=== PATIENT | female | born 1980 | race Hispanic/Latino ===

== ENCOUNTER 2018-12-29 09:13 | Emergency (ER) | payer OTHER ==
[2018-12-29 10:06] LABS: Bilirubin Negative (Negative); Blood, Urine Moderate (Negative); Clarity Clear (Clear); Glucose, Urine (Dipstick) Negative (Negative); Leukocyte Negative (Negative); Nitrite Negative (Negative); Protein, Urine (Dipstick) Negative (Neg-Trace); Specific Gravity, Urine 1.015 (1.005-1.030); Urobilinogen 0.2 mg/dL (0.2-1.0)
[2018-12-29 10:06] LABS: #Lymphocytes 1.9 thou/uL (1.20-3.40); #Monocytes 0.4 thou/uL (0.11-0.59); #Neutrophils 5.1 thou/uL (1.40-6.50); %Basophils 0.6 % (0.0-1.0); %Eosinophils 0.1 % (0.0-10.0); %Lymphocytes 25.7 % (21.0-51.0); %Monocytes 5.2 % (0.0-10.0); %Neutrophils 68.4 % (42.0-75.0); Hemoglobin 13.8 g/dL (12.0-16.0); Mean Corpuscular Volume 85.1 fL (78.0-98.0); Platelet Count 215 thou/uL (130-400); RBC Distribution Width 12.5 % (11.5-14.5); Red Blood Cell (RBC) Count 4.78 mill/uL (4.20-5.40); White Blood Cell (WBC) Count 7.4 thou/uL (4.8-10.8)
[2018-12-29 10:14] LABS: Bacteria/HPF 1+ HPF (None Seen); WBC/HPF None Seen HPF (0-3)
--- NOTE | 2018-12-29 11:26 | ULT ---
PELVIC ULTRASOUND: HISTORY: female with vaginal bleeding. Initially, this was dark spotting, but it became bright red t anita. TECHNIQUE: Multiplanar, chavez scale, and color Doppler images were obtained in a transabdominal and transvaginal pelvic ultrasound. Spectral analysis of the Doppler waveforms of the ovaries was performed. FINDINGS: There is a single live intrauterine with a heartbeat of 147 b.p.m. A yolk sac and po le are seen. [place]-rump length of the pole is 1.43 cm which estimates gestational age at 7 wee ks 5 days. A small hypodense region adjacent to the gestational sac likely represents a small area of subchorion ic hemorrhage. Both ovaries are normal in size and appearance and demonstrate normal internal flow. A corpus luteum cyst is seen in the left ovary. IMPRESSION: 1. Small subchorionic hemorrhage. 2. Single live intrauterine with estimated age of 7 weeks 5 days. POS: [facility]
== END 2018-12-29 11:15 | disposition home or self-care (01) ==
LOC: SCSER 09:13
DX: O20.8 Other hemorrhage in early pregnancy (principal); O20.0 Threatened abortion; O99.281 Endocrine, nutritional and metabolic diseases complicating pregnancy, first trimester; E03.9 Hypothyroidism, unspecified; E28.2 Polycystic ovarian syndrome; E11.9 Type 2 diabetes mellitus without complications; Z79.4 Long term (current) use of insulin; Z79.899 Other long term (current) drug therapy; Z3A.01 Less than 8 weeks gestation of pregnancy
CPT/HCPCS: 76856; 81003; 81015; 84702; 85025; 86900; 86901

== ENCOUNTER 2019-04-22 10:25 | Day surgery (SDC) | payer OTHER ==
[2019-04-22 11:25] VITALS: BMI 32.3
--- NOTE | 2019-04-22 13:31 | PRG ---
DATE OF SERVICE: 04/22/2019 TIME OF SERVICE: 10 o'clock. PRESENTING COMPLAINT: Decreased movement for one day. HISTORY OF PRESENT ILLNESS: Ms. Ordonez is a 38-year-old 5, para 3, AB 1, previous C-sections at 24 weeks' gestation, sees Dr. Evelyn Wallace. She is a diabetic, on both insulin and metformin. She was doing a lot of house cleaning at all over the weekend and noticed decreased movement. She states she did jumping jacks at home, but did not have any improvement. She denies rupture of membranes. She denies vaginal bleeding. OB HISTORY: x2. History of delivery in one at 27 weeks. Other pregnancies are gone term with 17-hydroxyprogesterone. PAST MEDICAL HISTORY: Hypothyroidism and diabetes. PAST SURGICAL HISTORY: delivery. ALLERGIES: NONE. MEDICATIONS: 1. Levemir. 2. Metformin. 3. Sadaf. 4. Thyroid 90 mg. SOCIAL HISTORY: Denies tobacco, alcohol, or IV drug use. FAMILY HISTORY: Noncontributory. REVIEW OF SYSTEMS: Noncontributory. PHYSICAL EXAMINATION: GENERAL: female. VITAL SIGNS: Blood pressure 118/80, pulse 78, respirations 18, weight 178 pounds. HEENT: Within normal limits. LUNGS: Clear to auscultation bilaterally. HEART: Regular rate and rhythm. ABDOMEN: Soft and nontender. Fundal height of 25 cm. FHTs 140s. EXTREMITIES: Without clubbing, cyanosis, or edema. PELVIC: Deferred. heart rate tracing, I was unable to perform NST because of early gestational age, however, continuous tracing was achieved for greater than 5 minutes, which was category I with accelerations and audible movement. IMPRESSION: Diabetic, 24 weeks with decreased movement. No evidence of compromise, likely due to positioning in early gestational age with insulin-dependent diabetes. PLAN: Discharge home. Keep scheduled followup with Dr. Wallace and Maternal Medicine. Job ID: [id number]
== END 2019-04-22 11:45 | disposition home or self-care (01) ==
LOC: L&D/OP 10:25
PROVIDERS: ATTEND Obstetrics & Gynecology
DX: O36.8120 Decreased fetal movements, second trimester, not applicable or unspecified (principal); O99.282 Endocrine, nutritional and metabolic diseases complicating pregnancy, second trimester; E03.9 Hypothyroidism, unspecified; O24.912 Unspecified diabetes mellitus in pregnancy, second trimester; Z79.4 Long term (current) use of insulin; Z3A.24 24 weeks gestation of pregnancy; Z79.899 Other long term (current) drug therapy
CPT/HCPCS: 99282

== ENCOUNTER 2019-06-14 02:50 | Day surgery (SDC) | payer OTHER ==
[2019-06-14 03:36] VITALS: BP 127/75; TEMP 98.7; BMI 33.3
[2019-06-14] MEDS ORDERED: hydrALAZINE 20 MG/ML VIAL SLOW IVP PRN (03:59)
--- NOTE | 2019-06-14 07:00 | PRG ---
DATE OF SERVICE: 06/14/2019 PRIMARY OB: Evelyn Wallace DO CHIEF COMPLAINT: Decreased movement. HISTORY OF PRESENT ILLNESS: The patient is a 38-year-old, G5, P3 female with an intrauterine at 31 weeks and 4 days, who presents with lower back pain and decreased movement. The patient attributes her back pain to her work schedule and sitting all day. She reports that since early in the afternoon, she had not felt her baby move and was concerned and came in. The patient denies any uterine contractions, leakage of fluid, or vaginal bleeding. Past medical history is significant for diabetes and thyroid disease. The patient denies any fever, fall, headache, chest pain, shortness of breath, nausea, vomiting, diarrhea, constipation, hip problems, knee problems, muscle weakness, vaginal bleeding, leakage of fluid, or urinary urgency or frequency. PAST MEDICAL HISTORY: Thyroid disorder, type 2 diabetes, migraines. PAST SURGICAL HISTORY: She has had a , tummy tuck, breast lift. ALLERGIES: NO KNOWN DRUG ALLERGIES. SOCIAL HISTORY: Denies drug, alcohol, or tobacco use. MEDICATIONS: 1. Levemir. 2. Metformin. 3. [place]. 4. Thyroid medication. OB HISTORY: She has had history of a 27-week delivery and has had 2 prior C-sections. OB LABS: Unavailable at the time of dictation. REVIEW OF SYSTEMS: Per HPI. PHYSICAL EXAMINATION: VITAL SIGNS: Blood pressure 127/75, heart rate in the 90s, saturating 99% to 100% on room air, temperature 98.7, respiratory rate is 16. GENERAL: She appears to be in no acute distress. She is alert, oriented, cooperative, and pleasant to interact with. HEAD: Normocephalic, atraumatic. LUNGS: Clear to auscultation bilaterally. HEART: Regular rate and rhythm. ABDOMEN: Soft and gravid. EXTREMITIES: Nontender. Nonedematous. She does have some paravertebral muscular pains in her lower back to palpation. Extremities are nontender with minimal edema. Cervix is closed on cervical exam per nursing staff. heart tracing shows a baseline in the 140s with moderate long-term variability, positive 15 x 15 accelerations, no decelerations. Tocometer not showing any contractions. ASSESSMENT AND PLAN: The patient is a 38-year-old female with an intrauterine at 31 weeks, complicated by type 2 diabetes and thyroid dysfunction, controlled, here for decreased movement. The fetus had a reactive NST and category 1 tracing. The patient has been given reassurance. Pains are consistent with musculoskeletal pains of . She has no evidence of labor and the pains can be reproduced with palpation. We suggested stretching may be of assistance, Tylenol and heat to the area. The patient is being discharged home. She has instructions to follow up with her primary OB as scheduled. Job ID: [id number]
== END 2019-06-14 04:27 | disposition home or self-care (01) ==
LOC: L&D/OP 02:50
PROVIDERS: ATTEND Obstetrics & Gynecology
DX: O36.8130 Decreased fetal movements, third trimester, not applicable or unspecified (principal); O26.893 Other specified pregnancy related conditions, third trimester; M54.5 Low back pain; O99.283 Endocrine, nutritional and metabolic diseases complicating pregnancy, third trimester; E07.9 Disorder of thyroid, unspecified; O99.353 Diseases of the nervous system complicating pregnancy, third trimester; G43.909 Migraine, unspecified, not intractable, without status migrainosus; O24.913 Unspecified diabetes mellitus in pregnancy, third trimester; Z3A.31 31 weeks gestation of pregnancy; Z79.4 Long term (current) use of insulin; Z79.82 Long term (current) use of aspirin; Z79.899 Other long term (current) drug therapy
CPT/HCPCS: 59025; 99282

== ENCOUNTER 2019-07-24 09:30 | Inpatient (IN) | payer OTHER ==
[2019-07-24] MEDS ORDERED: Ondansetron PF 4 MG/2 ML Vial IVP PRN (09:59)
[2019-07-24] MEDS ORDERED: Promethazine HCl 25 MG/ML VIAL IM PRN ×2 (09:59→11:32)
[2019-07-24] MEDS ORDERED: hydrALAZINE 20 MG/ML VIAL SLOW IVP PRN ×2 (09:59→14:01)
[2019-07-24] MEDS ORDERED: Acetaminophen 500 MG TAB PO PRN (09:59)
[2019-07-24] MEDS ORDERED: Butorphanol Tartrate 1 MG/ML VIAL SLOW IVP PRN (09:59)
[2019-07-24] MEDS ORDERED: Bicitra 30 ML UDCUP PO SCH (10:00)
[2019-07-24] MEDS ORDERED: CEFAZOLIN 2 GM in Premix Bag 1 BAG IVPB SCH (10:00)
[2019-07-24] MEDS: Lactated Ringer's 1,000 ML IV SCH ×2 (10:20→17:55)
[2019-07-24 10:26] VITALS: BMI 34.5
--- NOTE | 2019-07-24 10:31 | PDOC.LDHP ---
Labor and Delivery H&P Chief complaint: other (Repeat CS) HPI: 38 yo @ 37w2d by LMP c/w 9 week CRL who presents from clinic for RCD due to h/o previous CS x2, oligohydramions. RFs: CS x2, H/O PTD @ 27 week (s/p Sadaf), AMA, BDM on insulin, hypothyroidism. DM mgmt: Levemir 48 units BID; Humalog 66 with meals, Metformin 1000 mg BID. Echo: mild tricuspid regurgitation and biventricular hypertrophy that are stable with normal EF (recommended infant echo 4 weeks after ) Current gestational age (weeks): 37 Due date: 08/12/19 Dating criteria: last menstrual period Grav: 5 Para: 3 OB History Details: 1 VD, 2 CS Current complications: oligohydramnios ( RFs: CS x2, H/O PTD @ 27 week (on Sadaf), AMA, BDM on insulin), other Current medications: pre- vitamins, other (Levemir, Humalog, Metformin, Synthroid) Previous surgical history: low tranverse CS (x2), other (abdominoplasty, liposuction) Allergies/Adverse Reactions: Allergies Allergy/AdvReac Type Severity Reaction Status Date / Time No Known Allergies Allergy Verified 06/14/19 03:24 Social history: none - Physical Exam Vital signs reviewed and normal: yes General: NAD Heart: RRR Lungs: nonlabored breathing Abdomen: gravid Extremeties: no edema FHT: category 1 [place] contractions every: no ctx - OB Labs Blood type: O RH: positive Antibody Screen: negative HIV: negative RPR: negative HEPSAg: negative GBS: positive Urine drug screen: negative Rubella: immune - Assessment 37w2d IUP CS x2 Oligohydramnios BDM Hypothyroidism Echo: mild tricuspid regurgitation and biventricular hypertrophy that are stable with normal EF (recommended infant echo 4 weeks after ) - Plan Plan: to OR for section, informed consent obtained, anesthesia consult for pain management
[2019-07-24 10:38] LABS: Hemoglobin 12.8 g/dL (12.0-16.0); Mean Corpuscular HGB CONC 34.9 g/dL (32.0-36.0); Mean Corpuscular Hemoglobin 29.5 pg (27.0-31.0); Mean Corpuscular Volume 84.7 fL (78.0-98.0); Mean Platelet Volume 9.5 fL (7.4-10.4); Platelet Count 205 thou/uL (130-400); RBC Distribution Width 15.2 % (11.5-14.5); Red Blood Cell (RBC) Count 4.34 mill/uL (4.20-5.40); White Blood Cell (WBC) Count 8.5 thou/uL (4.8-10.8)
[2019-07-24] MEDS ORDERED: Ondansetron PF 4 MG/2 ML Vial ONE ×3 (10:50→12:28)
[2019-07-24] MEDS ORDERED: Oxytocin 10 UNITS/ML VIAL ONE ×2 (10:50→11:29)
[2019-07-24] MEDS ORDERED: MORPHINE 5 MG/10 ML PF VIAL ONE (10:50)
[2019-07-24] MEDS ORDERED: ePHEDrine/0.9% NaCl/PF SYRINGE 50 mg/10 ml ONE (10:50)
[2019-07-24] MEDS ORDERED: ePHEDrine 50 MG/ML VIAL ONE (10:53)
[2019-07-24 11:17] LABS: HBSAg Index 0.19 S/CO (0-0.99); HIV (1/2) Antibody/Antigen Non-Reactive (NonReactive); HIV 1/2 INDEX 0.12 S/CO (<1.00); Hep B Surf Ag Non-Reactive S/CO (NonReactive)
[2019-07-24 11:19] LABS: Syphilis Antibody Nonreactive (Nonreactive); Syphilis Antibody Index 0.06 S/CO (<1.00 Non-Reactive)
[2019-07-24] MEDS ORDERED: Ondansetron HCl/PF 4 MG/2 ML Vial IVP PRN (11:32)
[2019-07-24] MEDS ORDERED: Naloxone HCl 0.4 mg/ml Vial IV PRN (11:32)
[2019-07-24] MEDS ORDERED: diphenhydrAMINE 50 MG/ML VIAL IVP PRN (11:32)
[2019-07-24] MEDS ORDERED: Promethazine HCl 25 MG SUPP PR PRN (11:32)
[2019-07-24] MEDS ORDERED: Naloxone HCl 0.4 mg/ml Vial IVP PRN ×2 (11:32)
[2019-07-24] MEDS ORDERED: HYDROmorphone 2 MG/ML VIAL SLOW IVP PRN (11:32)
[2019-07-24] MEDS ORDERED: Meperidine HCl/PF 25 MG/ML VIAL SLOW IVP PRN (11:32)
[2019-07-24] MEDS ORDERED: Ketorolac Tromethamine 30 MG/ML VIAL IVP PRN (11:32)
[2019-07-24] MEDS ORDERED: L&D-Morphine 4 MG/ML VIAL SLOW IVP PRN (11:32)
[2019-07-24] MEDS ORDERED: Communication Order-Pharmacy FS SCH (11:45)
[2019-07-24] MEDS ORDERED: Ketorolac Tromethamine 30 MG/ML VIAL IVP SCH (11:45)
--- NOTE | 2019-07-24 12:25 | PDOC.OPDEL ---
OB Operative/Delivery Note Delivery Dr/Surgeon: Evelyn Wallace DO Pre-Delivery Diagnosis: medically indicated induction Procedure/Post Delivery Dx: repeat low transverse CS Weeks gestation: 37 Anesthesia: spinal - Findings A Sex: female - 1 min: 8 - 5 min: 9 - Additional Findings/Plan Placenta delivered: spontaneous findings: low transverse hysterotomy without extension, normal uterus, normal tubes, normal ovaries Estimated blood loss: QBL 596 cc Compilations/Other Findings: Scant clear fluid in cephalic presentation Normal appearing placenta Post delivery plan: routine recovery (Dictation # [id number])
[2019-07-24] MEDS: Ondansetron PF 4 MG/2 ML Vial IVP PRN ×2 (12:32→17:48)
[2019-07-24] MEDS ORDERED: Acetaminophen 325 MG TAB PO PRN (14:01)
[2019-07-24] MEDS ORDERED: Lanolin Ointment 7 GM TUBE TOP PRN (14:01)
[2019-07-24] MEDS ORDERED: Methylergonovine 0.2 MG/ML VIAL IM PRN (14:01)
[2019-07-24] MEDS ORDERED: NS / Oxytocin 40 units/1000ml 1,000 ML IV SCH (14:01)
[2019-07-24] MEDS ORDERED: Adacel (T-DAP) 0.5 ML SYRINGE IM ONE (14:01)
[2019-07-24] MEDS ORDERED: diphenhydrAMINE 25 MG CAP PO PRN (14:01)
[2019-07-24] MEDS ORDERED: Bisacodyl 10 MG SUPP PR PRN (14:01)
[2019-07-24] MEDS ORDERED: Simethicone Chewable 80 MG TAB PO PRN (14:01)
[2019-07-24] MEDS ORDERED: NS / Oxytocin 40 units/1000ml 1,000 ML ONE (14:03)
[2019-07-24] MEDS: metFORMIN 500 MG TAB PO SCH (16:52)
--- NOTE | 2019-07-25 00:17 | PDOC.PP ---
Post Progress Note Post Day #: POD1 Subjective: Resting comfortably, no complaints. PO intake tolerated: no Flatus: no Ambulation: no Vital Signs (12 hours) Temp Pulse Resp BP Pulse Ox 07/24/19 19:48 97.6 F 70 16 113/69 98 07/24/19 18:01 98.2 F 76 16 118/64 98 07/24/19 16:47 97.7 F 83 12 116/69 98 07/24/19 16:16 75 18 119/63 97 07/24/19 15:46 98.2 F 78 20 118/62 98 07/24/19 15:16 98.0 F 84 18 118/67 98 07/24/19 14:46 97.9 F 73 20 113/63 96 Weight Weight 85.729 kg - Physical Examination General: NAD Respiratory: non-labored breathing Abdominal: no distention Skin: CS incision dry & intact Neurological: no gross focal deficits Psychiatric: normal affect Result Diagrams: 07/24/19 10:22 Additional Labs: Post Labs Blood Type O POSITIVE 07/24/19 10:21 Hep Bs Antigen Non-Reactive S/CO (NonReactive) 07/24/19 10:22 - Assessment/Plan Doing well s/p C/S. DC martínez, ambulate when martínez out. Clears and advance. Checking glucoses, insulin ordered.
[2019-07-25] MEDS: Lactated Ringer's 1,000 ML IV SCH ×2 (01:10→13:57)
[2019-07-25] MEDS: Docusate Calcium (SURFAK) 240 MG CAP PO SCH ×2 (04:15→10:58)
[2019-07-25] MEDS: Insulin Glargine 24 UNITS in Pre-Filled Syringe SC SCH ×2 (04:15→10:43)
[2019-07-25] MEDS: Ferrous Sulfate 325 MG TAB PO SCH ×2 (04:15→10:58)
[2019-07-25 06:47] LABS: #Lymphocytes 1.8 thou/uL (1.20-3.40); #Monocytes 0.6 thou/uL (0.11-0.59); #Neutrophils 5.8 thou/uL (1.40-6.50); %Basophils 0.1 % (0.0-1.0); %Eosinophils 0.5 % (0.0-10.0); %Lymphocytes 21.8 % (21.0-51.0); %Monocytes 7.2 % (0.0-10.0); %Neutrophils 70.5 % (42.0-75.0); Hemoglobin 10.6 g/dL (12.0-16.0); Mean Corpuscular HGB CONC 35.1 g/dL (32.0-36.0); Mean Corpuscular Hemoglobin 30.5 pg (27.0-31.0); Mean Corpuscular Volume 86.8 fL (78.0-98.0); Mean Platelet Volume 9.4 fL (7.4-10.4); Platelet Count 180 thou/uL (130-400); RBC Distribution Width 15.2 % (11.5-14.5); Red Blood Cell (RBC) Count 3.47 mill/uL (4.20-5.40); White Blood Cell (WBC) Count 8.3 thou/uL (4.8-10.8)
[2019-07-25] MEDS: HumaLOG 300 UNITS/3 ML VIAL SC SCH ×3 (10:42→17:32)
[2019-07-25] MEDS: Prenatal Vitamin 1 TAB PO SCH (10:58)
[2019-07-25] MEDS: metFORMIN 500 MG TAB PO SCH (11:01)
--- NOTE | 2019-07-25 11:29 | OP ---
DATE OF PROCEDURE: 07/24/2019 PREOPERATIVE DIAGNOSES: 1. A 37-week 2-day intrauterine . 2. Previous delivery x2. 3. Oligohydramnios. 4. Insulin-dependent diabetic. 5. Obesity. 6. History of delivery. 7. Hypothyroidism. 8. echocardiogram with mild tricuspid regurgitation and biventricular hypertrophy with a normal ejection fraction. 9. Advanced maternal age POSTOPERATIVE DIAGNOSES: 1. A 37-week 2-day intrauterine . 2. Previous delivery x2. 3. Oligohydramnios. 4. Insulin-dependent diabetic. 5. Obesity. 6. History of delivery. 7. Hypothyroidism. 8. echocardiogram with mild tricuspid regurgitation and biventricular hypertrophy with a normal ejection fraction. 9. Advanced maternal age PROCEDURE PERFORMED: Repeat low transverse delivery via Pfannenstiel skin incision. PATIENT RELATIONS DIRECTOR: Lauro Snyder MD COMPLICATIONS: None. ANESTHESIA: Spinal. QBL: 596 mL. IV FLUIDS: 1200 mL. URINARY OUTPUT: 300 mL. FINDINGS: Dense scar tissue along the previous scar into the fascia from her abdominoplasty, dense scar tissue along the rectus abdominis muscles. Minimal thin adhesions from the lower uterine segment to the dome of the bladder. Clear amniotic fluid. A viable female with Apgars 8 and 9. Normal-appearing placenta. Normal-appearing uterus, fallopian tubes, and ovaries bilaterally. INDICATIONS FOR THE PROCEDURE: Ms. Génesis Ordonez is a 38-year-old, G5, P3, at 37 weeks and two days, who presented to clinic for her biophysical profile and was found to have oligohydramnios with an [place]AR[place] of approximately 4. The patient has a past medical history including insulin-dependent diabetes, obesity, and hypothyroidism. Due to the finding of oligohydramnios, delivery was recommended. AmniSure was performed and it was negative for rupture of membranes. DESCRIPTION OF PROCEDURE: The patient was brought to the operating room. She was placed under spinal anesthesia and placed in supine position with a leftward tilt. A Alas catheter was placed. She was given Ancef for surgical prophylaxis. Her abdomen was prepped and draped in a sterile fashion. An official time-out was performed. A Pfannenstiel skin incision was made through the previous scar, this was carried down to the underlying fascia layer. There was dense adhesions along the scar and the fascia was incised in the midline, extended bilaterally using Srinivasan scissors. The superior aspect of the fascial incision was grasped using Ck clamps, tented upward, and dissected free from the underlying rectus abdominis muscles. The same was performed in the inferior aspect of the fascial incision. The rectus abdominis muscles were elevated using Allis clamps and the midline was incised using the scalpel. There was dense adhesion at this area. The scar was taken down in multiple layers until the peritoneum was obtained and entered. The peritoneal incision was then extended using both sharp and blunt dissection. Jeffy O retractor was then inserted into the abdomen and appropriately secured. The bladder flap was created. A low transverse hysterotomy was made using a scalpel through the previous scar, this was extended using blunt dissection. Amniotic membranes were ruptured noting clear amniotic fluid. was delivered in cephalic presentation. 's cord was clamped and cut. Infant was handed to the awaiting neonatology team. Cord sample and cord blood were obtained. The placenta was delivered spontaneously intact. The uterus was cleared of all clot and debris. The hysterotomy was closed in a running locking fashion using 1 Monocryl suture, noted to be hemostatic. The pelvis was again irrigated and cleared of all clot and debris. The adnexa were evaluated and normal in appearance. The Jeffy O retractor was removed from the abdomen. The peritoneum was closed in a running fashion. The rectus abdominis muscles were hemostatic with use of the Bovie. The fascia was closed in running fashion using 0 PDS. The subcutaneous layer was copiously irrigated and hemostatic with the use of the Bovie. The subcutaneous layer was closed in two layer fashion using Vicryl. The skin was closed using Monocryl and Dermabond. The patient tolerated the procedure well. There were no complications. All counts were correct x3. The mother and baby will be transferred to routine recovery. Job ID: [id number] [facility]
[2019-07-25] MEDS: HYDROcodone/Acetaminophen 5/325 mg Tablet PO PRN (13:55)
[2019-07-25] MEDS: Ibuprofen 800 MG TAB PO SCH (13:55)
[2019-07-26] MEDS: Ibuprofen 800 MG TAB PO SCH ×2 (01:10→08:46)
[2019-07-26] MEDS: Docusate Calcium (SURFAK) 240 MG CAP PO SCH ×2 (01:11→08:47)
[2019-07-26] MEDS: HYDROcodone/Acetaminophen 5/325 mg Tablet PO PRN ×2 (01:58→08:52)
[2019-07-26] MEDS: Lactated Ringer's 1,000 ML IV SCH ×3 (02:00→08:49)
[2019-07-26] MEDS: Ferrous Sulfate 325 MG TAB PO SCH ×2 (02:00→08:47)
[2019-07-26] MEDS: Insulin Glargine 24 UNITS in Pre-Filled Syringe SC SCH ×2 (02:00→08:47)
[2019-07-26] MEDS: metFORMIN 500 MG TAB PO SCH ×2 (02:01→08:47)
[2019-07-26 08:14] VITALS: BP 116/68; TEMP 98
[2019-07-26] MEDS: HumaLOG 300 UNITS/3 ML VIAL SC SCH (08:47)
[2019-07-26] MEDS: Prenatal Vitamin 1 TAB PO SCH (08:47)
[2019-07-26] MEDS ORDERED: Enoxaparin Sodium 40 MG/0.4 ML SYRINGE SC SCH (09:00)
--- NOTE | 2019-07-26 09:39 | PDOC.PP ---
Post Progress Note Post Day #: 2 Subjective: PPD 2 s/p pederson doing well. Patient is planning on breast- feeding and requested consult. PO intake tolerated: yes Ambulation: yes Vital Signs (12 hours) Temp Pulse Resp BP Pulse Ox 07/26/19 08:00 98.0 F 75 20 116/68 98 07/26/19 04:00 16 Weight Weight 189 lb All other vital signs reviewed. - Physical Examination General: NAD Skin: CS incision dry & intact Neurological: no gross focal deficits Psychiatric: A&Ox3, normal affect Result Diagrams: 07/25/19 06:10 Additional Labs: Post Labs Blood Type O POSITIVE 07/24/19 10:21 Hep Bs Antigen Non-Reactive S/CO (NonReactive) 07/24/19 10:22 (1) Hypothyroidism Code(s): E03.9 - HYPOTHYROIDISM, UNSPECIFIED Status: Acute (2) Type 2 diabetes mellitus Status: Acute (3) delivery delivered Code(s): O82 - ENCOUNTER FOR DELIVERY WITHOUT INDICATION Status: Acute - Assessment/Plan 1. PPD 2 s/p pederson: - Plan discharge today 07/26. - consult for breast feeding education prior to d/c...securities consultant in room now. -Routine care. 2. T2DM -Patient self administering accuchecks and insulin. We will verify serum glucose levels before d/c. -Continue metformin and insulin w/ regular accuchecks at home. 3. Hypothyroidism -Continue synthroid at home.
--- NOTE | 2019-07-26 09:59 | PDISCHARGE ---
Discharge - Disposition Disposition: HOME - Patient Instructions Additional Instructions: 2 weeks cs wound check; continue scheduled meds as instructed (metformin, insulin, synthroid) - Referrals and PCP Follow-Up Referrals and PCP Follow-Up: Evelyn Wallace DO [Primary Care Provider] - - Activity Instructions Activity:: Activity Restrictions - Nourishment Instructions Nourishment:: Diabetic Diet - Therapy Instructions Therapies:: Not Applicable - Equipment/Supply Instructions Equipment/Supplies:: Not Applicable - IV Therapy Instructions IV Therapy:: Not Applicable
--- NOTE | 2019-07-26 10:02 | PDOC.EVN ---
Event Note - Event Note Event Note: DISCHARGE NOTE: See written and completed DC summary in chart DX: Repeat CS (scheduled) Class B DM Hypothroidism Sent home with tylenol #3 (#10 only). Patient instructed to continue home meds as instructed. She will see Dr Palumbo in 2 weeks. Incision C/D/I. closed with suture and DB. No evidence cellulites.
== END 2019-07-26 12:15 | disposition home or self-care (01) | DRG 786 ==
LOC: L&D 09:53 → 3SE 14:33
PROVIDERS: ADMIT Obstetrics & Gynecology; ATTEND Obstetrics & Gynecology
PROC: 10D00Z1 Extraction of Products of Conception, Low, Open Approach (ICD-10-PCS; principal; 2019-07-24)
DX: O41.03X0 Oligohydramnios, third trimester, not applicable or unspecified (principal); O24.12 Pre-existing type 2 diabetes mellitus, in childbirth; O99.214 Obesity complicating childbirth; E66.9 Obesity, unspecified; Z37.0 Single live birth; Z79.84 Long term (current) use of oral hypoglycemic drugs; O99.284 Endocrine, nutritional and metabolic diseases complicating childbirth; E03.9 Hypothyroidism, unspecified; E11.9 Type 2 diabetes mellitus without complications; Z79.4 Long term (current) use of insulin; Z3A.37 37 weeks gestation of pregnancy; O75.89 Other specified complications of labor and delivery; O34.211 Maternal care for low transverse scar from previous cesarean delivery
CPT/HCPCS: 36415; 36416; 51702; 85025; 85027; 86780; 86850; 86900; 86901; 87340; 87389; 88307; 90715; J0690; J1200; J1815; J1885; J2274; J2405; J2590; J3490; Q0163

== ENCOUNTER 2019-10-22 11:08 | Outpatient (CLI) | payer OTHER ==
[2019-10-22 13:58] LABS: #Lymphocytes 2.3 thou/uL (1.20-3.40); #Monocytes 0.5 thou/uL (0.11-0.59); #Neutrophils 4.5 thou/uL (1.40-6.50); %Basophils 0.4 % (0.0-1.0); %Eosinophils 0.5 % (0.0-10.0); %Lymphocytes 31.4 % (21.0-51.0); %Monocytes 6.5 % (0.0-10.0); %Neutrophils 61.2 % (42.0-75.0); Hemoglobin 14.6 g/dL (12.0-16.0); Mean Corpuscular HGB CONC 33.4 g/dL (32.0-36.0); Mean Corpuscular Hemoglobin 28.5 pg (27.0-31.0); Mean Corpuscular Volume 85.3 fL (78.0-98.0); Mean Platelet Volume 8.8 fL (7.4-10.4); Platelet Count 268 thou/uL (130-400); Red Blood Cell (RBC) Count 5.14 mill/uL (4.20-5.40); White Blood Cell (WBC) Count 7.3 thou/uL (4.8-10.8)
[2019-10-22 14:01] LABS: BHCG - Serum Negative (NEGATIVE); Pregs Control Background? CLEAR/WHITE (CLR/WHITE); Pregs Control Bar Appear? YES (CONTROL BAR)
[2019-10-22 14:26] LABS: ALT (SGPT) 53 U/L (8-55); AST (SGOT) 33 U/L (5-34); Albumin 4.9 g/dL (3.5-5.0); Alkaline Phosphatase 151 U/L (40-110); Anion Gap 13 mmol/L (10-20); BUN (Urea Nitrogen) 11 mg/dL (7.0-18.7); Bilirubin, Total 0.8 mg/dL (0.2-1.2); Calc. Creatinine Clearance 0 mL/min (70-130); Calcium 9.8 mg/dL (7.8-10.44); Carbon Dioxide 26 mmol/L (22-29); Chloride 102 mmol/L (98-107); Estimated GFR-MDRD Greater than 90; Glucose 137 mg/dL (70-105); Potassium 3.7 mmol/L (3.5-5.1); Protein, Total 7.9 g/dL (6.0-8.3); Sodium 137 mmol/L (136-145)
== END 2019-10-22 11:09 | disposition home or self-care (01) ==
LOC: LABBT 11:08
PROVIDERS: ATTEND Surgery
DX: Z01.812 Encounter for preprocedural laboratory examination (principal); K80.20 Calculus of gallbladder without cholecystitis without obstruction
CPT/HCPCS: 80053; 84703; 85025

== ENCOUNTER 2019-11-01 08:22 | Day surgery (SDC) | payer OTHER ==
[2019-10-22 11:19] VITALS: BMI 31.1
[2019-11-01] MEDS ORDERED: Lidocaine 1% w/Epinephrine 1:100K 20 ML VIAL ONE (10:07)
[2019-11-01] MEDS ORDERED: Bupivacaine PF 0.5% 30 ML VIAL ONE (10:07)
[2019-11-01] MEDS ORDERED: Fentanyl 100 MCG/2 ML VIAL ONE ×2 (10:24→12:35)
[2019-11-01] MEDS ORDERED: Glycopyrrolate 0.2 MG/ML 5 ML SYRINGE ONE (11:16)
[2019-11-01] MEDS ORDERED: Rocuronium Bromide 10 MG/ML (10ML VIAL) ONE (11:16)
[2019-11-01] MEDS ORDERED: Ondansetron PF 4 MG/2 ML Vial ONE (11:16)
[2019-11-01] MEDS ORDERED: Lidocaine 1% PF 5 ML VIAL ONE (11:16)
[2019-11-01] MEDS ORDERED: Esmolol 100 MG/10 ML VIAL ONE (11:16)
[2019-11-01] MEDS ORDERED: PROPOFOL 200 MG/20 ML VIAL ONE (11:16)
[2019-11-01] MEDS ORDERED: ePHEDrine/0.9% NaCl/PF SYRINGE 50 mg/10 ml ONE (11:16)
[2019-11-01] MEDS ORDERED: SUGAMMADEX SODIUM 500 MG/5 ML VIAL ONE (11:31)
[2019-11-01] MEDS ORDERED: Promethazine HCl 25 MG/ML VIAL ONE (14:03)
[2019-11-01] MEDS ORDERED: HYDROcodone/Acetaminophen 5/325 mg Tablet ONE (15:01)
--- NOTE | 2019-11-01 16:24 | PDOC.OP ---
Operative Note - Operative Note Operative Note: DATE OF PROCEDURE: 11/01/2019 PROCEDURES: Laparoscopic cholecystectomy. SURGEON: Justin Becerra M.D. PREOPERATIVE DIAGNOSIS: Symptomatic cholelithiasis POSTOPERATIVE DIAGNOSIS: Symptomatic cholelithiasis FINDINGS: Distended thin walled gallbladder with a large stone. HISTORY: Patient with symptoms of biliary colic. Laparoscopic cholecystectomy was recommended for symptomatic relief. Preoperative LFTs were normal and no bile duct dilatation noted on preoperative imaging. PROCEDURE: After informed consent was obtained and appropriate preoperative antibiotics were administered, the patient was taken to the operating room and placed in the supine position and general endotracheal anesthesia was administered. The stomach was decompressed with an OG tube and the abdomen was prepped and draped in standard sterile fashion. Local anesthesia was infused to the skin and subcutaneous tissues at the umbilical level. A transverse skin incision was made. The fascia was elevated and a Veress needle was placed into the abdominal cavity without difficulty. Opening pressure was less than 5 and carbon dioxide gas easily insufflated to an intra-abdominal pressure of 15, which the patient tolerated well. The Veress needle was withdrawn and a [place] port advanced under direct vision. The abdominal cavity was carefully examined. There was no evidence of Veress needle or of trocar injury. Local anesthesia was infused to the skin and subcutaneous tissues at the epigastric, right upper quadrant, and right lateral abdominal sites and trocars were placed under direct vision of the laparoscope. The fundus of the gallbladder was grasped and retracted superiorly. The infundibulum was grasped and retracted laterally. The serosa was stripped inferiorly at the level of the neck of the gallbladder exposing the cystic duct and artery which were traced clearly to their insertion in the gallbladder. Critical view of safety was obtained and the cystic duct and artery were clipped and divided between clips. The gallbladder was then dissected free of the gallbladder bed using hook electrocautery. Prior to complete removal of the gallbladder from the gallbladder bed, the area of the cystic duct and artery stumps was examined. The clips were in good position completely across these structures and there was no bleeding and no leakage of bile. The gallbladder was then placed into an EndoCatch bag and drawn out through the epigastric incision. The epigastric trocar was replaced and the operative site easily irrigated to clear. There was no significant bleeding or spillage of bile. The epigastric trocar was removed and the fascia closed under direct laparoscopic vision with a 0 Vicryl suture on a GraNee needle in a [id number] manner with excellent technical result. The right upper quadrant and right lateral abdominal trocars were removed and hemostasis verified. Carbon dioxide gas was allowed to desufflate through the umbilical trocar which was then removed. The skin incisions were closed with 4- 0 subcuticular Monocryl sutures and Dermabond dressings were placed. The patient was extubated and taken to the recovery room in good condition. There were no complications. ESTIMATED BLOOD LOSS: Minimal. SPECIMEN : Gallbladder and contents.
== END 2019-11-01 15:50 | disposition home or self-care (01) ==
LOC: SDC 08:22
PROVIDERS: ATTEND Surgery
PROC: 0FT44ZZ Resection of Gallbladder, Percutaneous Endoscopic Approach (ICD-10-PCS; principal; 2019-11-01)
DX: K80.10 Calculus of gallbladder with chronic cholecystitis without obstruction (principal); E03.9 Hypothyroidism, unspecified; E11.9 Type 2 diabetes mellitus without complications; Z79.4 Long term (current) use of insulin; Z79.899 Other long term (current) drug therapy
CPT/HCPCS: 36416; 88304; J0131; J0690; J2001; J2405; J2550; J2704; J3010; S0020